=== PATIENT | male | born 1990 | race Caucasian/White ===

== ENCOUNTER 2017-09-29 17:52 | Emergency (ER) | payer BC, OTHER ==
--- NOTE | 2017-09-29 18:57 | EDM.PDOC ---
ED HPI GENERAL MEDICAL PROBLEM - General Chief Complaint: Abdominal Pain Stated Complaint: ABDOMINAL PAIN Time Seen by Provider: 09/29/17 18:35 Source of Information: Reports: Patient History Limitations: Reports: No Limitations - History of Present Illness INITIAL COMMENTS - FREE TEXT/NARRATIVE: Patient is a 27-year-old male who presents to the ED complaining of left lower inguinal pain concerned about a hernia. Patient states this came on yesterday a.m. No precipitating activities. States with showering noticed some some mild swelling to the left inguinal region with worsening pain on palpation. He's been eating and drinking with no issues. No documented fever. No pain with urination. No history of hernias in the past. There has also been no diarrhea or blood in the stool. In addition has a small wound adjacent to his belly button after picking a sore thinking it was a infected hair. Redness is localized with no drainage present. This is a small area measuring approximately 2 cm to 2 cm. Patient denies any pain in his testicles, swelling to his testicles, painful urination, or any additional complaints. Left Lower Abdomen Pain Score (Numeric/FACES): 6 - Related Data Allergies Allergy/AdvReac Type Severity Reaction Status Date / Time Sulfa (Sulfonamide Allergy Cannot Verified 09/29/17 18:09 Antibiotics) Remember Home Meds: Home Meds . [No Known Home Meds] 09/29/17 [History] Past Medical History - Past Health History Medical/Surgical History: Denies Medical/Surgical History Social & Family History - Tobacco Use Smoking Status *Q: Current Every Day Smoker Years of Tobacco use: 5 Packs/Tins Daily: 0.5 - Caffeine Use Caffeine Use: Reports: Tea - Recreational Drug Use Recreational Drug Use: No ED ROS GENERAL - Review of Systems Review Of Systems: ROS reveals no pertinent complaints other than HPI. ED EXAM, GI/ABD - Physical Exam Exam: See Below Exam Limited By: No Limitations General Appearance: Alert, WD/WN, No Apparent Distress Ears: Hearing Grossly Normal Nose: Normal Inspection Throat/Mouth: Normal Voice, No Airway Compromise Head: Atraumatic, Normocephalic Neck: Normal Inspection, Supple, Non-Tender, Full Range of Motion Respiratory/Chest: No Respiratory Distress, Lungs Clear, Normal Breath Sounds, No Accessory Muscle Use Cardiovascular: Normal Peripheral Pulses, Regular Rate, Rhythm GI/Abdominal Exam: Normal Bowel Sounds, Soft, No Organomegaly, No Distention, Tender (To the left inguinal region with no swelling, redness, or open sores. ) (Male) Exam: Normal Inspection, Circumcised. No: No Hernia (Questional inguinal hernia left side. Nothing noted on the right. Pain noted to the left side with checking. No findings concerning for incarcerated bowel. Pain only.), Inguinal Lymphadenopathy, Scrotum Tenderness (L), Scrotum Tenderness (R), Testicular Tenderness (L), Testicular Tenderness (R) Extremities: Normal Inspection Neurological: Alert, Oriented, CN II-XII Intact, Normal Cognition, No Motor/ Sensory Deficits Psychiatric: Normal Affect, Normal Mood Skin Exam: Warm, Dry, Intact, Normal Color, No Rash Course - Vital Signs Last Recorded V/S: Last Vital Signs Temp 97.9 F 09/29/17 18:08 Pulse 70 09/29/17 18:08 Resp 20 09/29/17 18:08 BP 138/98 H 09/29/17 18:08 Pulse Ox 100 09/29/17 18:08 - Re-Assessments/Exams Free Text/Narrative Re-Assessment/Exam: On examination patient may have a left-sided inguinal hernia. No signs of incarcerated bowel. Offered to obtain CT study of the abdomen and pelvis and also labwork to which the patient refused. He will see a general surgeon in the next week or 2. Departure - Departure Time of Disposition: 19:01 Disposition: Home, Self-Care 01 Condition: Good Clinical Impression: Left groin pain, Mild left inguinal hernia - Discharge Information Instructions: Inguinal Hernia, Adult, [id number], Abdominal Pain, Adult, Easy -to-Read Referrals: Marcus Freedman MD [Physician] - Forms: ED Department Discharge, ED Return to Work/School Form Additional Instructions: Refrain from any activities that cause worsening pain. Take tylenol and ibuprofen in alternating fashion for pain. Call office tomorrow to schedule an appt to be evaluated for inguinal hernia. Return to the E.D. if you develop any new or worsening symptoms.
== END 2017-09-29 19:12 | disposition home or self-care (01) ==
LOC: JD.ED 17:52
DX: K40.90 Unilateral inguinal hernia, without obstruction or gangrene, not specified as recurrent (principal); F17.210 Nicotine dependence, cigarettes, uncomplicated; Z88.2 Allergy status to sulfonamides
CPT/HCPCS: 99283; 99284

== ENCOUNTER 2017-10-14 08:21 | Day surgery (SDC) | payer OTHER ==
[~2017-10-14 08:21] MED LIST: Lactated Ringers 1,000 ML IV SCH; Lidocaine 1%/Sod Bicarbonate in NS 8.4% 1 ML Syringe IDERM PRN; Sodium Chloride 0.9% 10 ML Syringe FLUSH PRN
[2017-10-14] MEDS ORDERED: Bupivacaine 0.5%/EPINEPHrine 1:200,000 50 ML MDV ONE (08:35)
[2017-10-14] MEDS ORDERED: Lidocaine 1% with EPINEPHrine 1:100,000 20 ML MDV ONE (08:35)
--- NOTE | 2017-10-14 09:10 | PCM.PREANE ---
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, has caused no issues ) Gastrointestinal: No Symptoms Neurological: No Symptoms Other: Reports: None - Physical Assessment NPO Status Date: 10/13/17 NPO Status Time: 23:30 O2 Sat by Pulse Oximetry: 97 Respiratory Rate: 16 Vital Signs: Last Vital Signs Temp 36.7 C 10/14/17 08:30 Pulse 89 10/14/17 08:30 Resp 16 10/14/17 08:30 BP 155/92 H 10/14/17 08:30 Pulse Ox 97 10/14/17 08:30 Height: 1.8 m Weight: 81.193 kg ASA Class: 2 Mental Status: Alert & Oriented x3 Airway Class: Mallampati = 1 Dentition: Reports: Normal Dentition Thyro-Mental Finger Breadths: 3 Mouth Opening Finger Breadths: 5 ROM/Head Extension: Limited/Partial Lungs: Clear to Auscultation, Normal Respiratory Effort Cardiovascular: Regular Rate, Regular Rhythm - Allergies Allergies/Adverse Reactions: Allergies Allergy/AdvReac Type Severity Reaction Status Date / Time Sulfa (Sulfonamide Allergy Cannot Verified 10/13/17 14:19 Antibiotics) Remember - Blood Blood Available: No - Acknowledgements Anesthesia Type Planned: General Anesthesia Pt an Appropriate Candidate for the Planned Anesthesia: Yes Alternatives and Risks of Anesthesia Discussed w Pt/Guardian: Yes Pt/Guardian Understands and Agrees with Anesthesia Plan: Yes PreAnesthesia Questionnaire - Past Health History Medical/Surgical History: Denies Medical/Surgical History - SUBSTANCE USE Smoking Status *Q: Current Every Day Smoker Tobacco Use Within Last Twelve Months: Cigarettes Recreational Drug Use History: Yes Recreational Drug Type: Reports: Barbituates - HOME MEDS Home Medications: Home Meds . [No Known Home Meds] 09/29/17 [History] - CURRENT (IN HOUSE) MEDS Current Meds: Current Medications Lactated Ringer's (Ringers, Lactated) 1,000 mls @ 125 mls/hr IV ASDIRECTED [place] Stop: 10/14/17 23:00 Last Admin: 10/14/17 08:45 Dose: 125 mls/hr Lidocaine/Sodium Bicarbonate (Buffered Lidocaine 1% In Ns 8.4%) 0.25 ml IDERM ONETIME PRN PRN Reason: Prior to IV Start Stop: 10/14/17 18:00 Last Admin: 10/14/17 08:44 Dose: 0.25 ml Sodium Chloride (Saline Flush) 10 ml FLUSH ASDIRECTED PRN PRN Reason: Keep Vein Open Stop: 10/14/17 18:00 Discontinued Medications Bupivacaine HCl/Epinephrine Bitart (Marcaine 0.5%/Epinephrine 1:200,000) Confirm Administered Dose 50 ml .ROUTE .STK-MED ONE Stop: 10/14/17 08:36 Lidocaine/Epinephrine (Xylocaine 1% With Epinephrine 1:100,000) Confirm Administered Dose 20 ml .ROUTE .STK-MED ONE Stop: 10/14/17 08:36
[2017-10-14] MEDS ORDERED: fentaNYL 100 MCG/2 ML SDV ONE (09:28)
[2017-10-14] MEDS ORDERED: Propofol 200 MG/20 ML SDV ONE (09:28)
[2017-10-14] MEDS ORDERED: Lidocaine 1% 4 ML ONE (09:29)
[2017-10-14] MEDS ORDERED: ceFAZolin 1 GM Vial ONE (09:31)
[2017-10-14] MEDS ORDERED: Midazolam 1 MG/ML 2 ML SDV ONE (09:40)
[2017-10-14] MEDS ORDERED: Ondansetron 4 MG/2 ML SDV ONE (09:53)
[2017-10-14] MEDS ORDERED: Dexamethasone 4 MG/ML SDV ONE (09:53)
[2017-10-14] MEDS ORDERED: HYDROmorphone 1 MG/ML Syringe ONE (09:59)
--- NOTE | 2017-10-14 10:42 | PCM.OPNOTE ---
- General Post-Op/Procedure Note Date of Surgery/Procedure: 10/14/17 Operative Procedure(s): Open left inguinal hernia repair with mesh Findings: Small cord lipoma with attenuation of the floor of the canal consistent with a direct hernia Pre Op Diagnosis: Symptomatic left inguinal hernia Post-Op Diagnosis: Same Anesthesia Technique: General LMA, Local Primary Surgeon: Marcus Freedman Pathology: None EBL in mLs: 2 Complications: None Condition: Good Free Text/Narrative:: After adequate LMA general anesthesia was obtained the patient's left groin was clipper prepped then prepped wit Betadine solution. Sterile field towels were applied. Then sterile drape. Local analgesia was given in the skin and subcutaneous tissues over the inguinal canal. A 15 blade was used to make an incision over the canal through the skin and subcutaneous tissues and Tricia down to the external oblique fascia. This structure was opened in the direction of its fibers. The spermatic cord was then mobilized at the pubic tubercle and controlled with a Flavio drain. I opened up the cremasteric fibers and there was no indirect sac. There was a small cord lipoma which was clamped and amputated and ligated with 3-0 Vicryl. The floor of the canal was significantly attenuated consistent with a direct hernia. I placed a Prolene mesh in the floor of the canal securing it to the shelving edge and the fascia of the internal oblique with a running 2-0 Prolene suture using a hole in the mesh for cord egress. I irrigated out the canal and obtained hemostasis. I closed the external oblique fascia with a running 3-0 Vicryl. Tricia's was closed with a running 3-0 Vicryl. The skin was closed with 4-0 subcuticular Vicryl. Steri- Strips and gauze used for the dressing. There were no complications.
[2017-10-14] MEDS ORDERED: Ketorolac 30 MG/ML SDV ONE (10:46)
--- NOTE | 2017-10-14 11:19 | PCM.POSTAN ---
POST ANESTHESIA ASSESSMENT - MENTAL STATUS Mental Status: Alert - VITAL SIGNS Pulse Rate: 100 SaO2: 97 Resp Rate: 21 Blood Pressure: 135/57 Temperature: 37.0 C - RESPIRATORY Respiratory Status: Respiratory Rate WNL, Airway Patent, O2 Saturation Stable - CARDIOVASCULAR CV Status: Pulse Rate WNL, Blood Pressure Stable - GASTROINTESTINAL GI Status: No Symptoms - PAIN Pain Score: 2 - POST OP HYDRATION Hydration Status: Adequate & Stable
[2017-10-14] MEDS ORDERED: diphenhydrAMINE 50 MG/ML SDV IVPUSH PRN (11:20)
[2017-10-14] MEDS ORDERED: Ondansetron 4 MG/2 ML SDV IVPUSH PRN (11:20)
[2017-10-14] MEDS ORDERED: HYDROmorphone 0.5 MG/0.5 ML Syringe IVPUSH PRN (11:20)
[2017-10-14] MEDS: fentaNYL 100 MCG/2 ML SDV IVPUSH PRN ×4 (11:34→12:25)
--- NOTE | 2017-10-14 13:43 | PCM48HPAN ---
Post Anesthesia Note - EVALUATION WITHIN 48HRS OF ANESTHETIC Vital Signs in Normal Range: Yes Patient Participated in Evaluation: Yes Respiratory Function Stable: Yes Airway Patent: Yes Cardiovascular Function Stable: Yes Hydration Status Stable: Yes Pain Control Satisfactory: Yes Nausea and Vomiting Control Satisfactory: Yes Mental Status Recovered: Yes Pulse Rate: 100 Resp Rate: 16 Temperature: 37.0 C Blood Pressure: 135/57
== END 2017-10-14 14:10 | disposition home or self-care (01) ==
LOC: JD.SDS 08:21
PROVIDERS: ATTEND Surgery
DX: K40.90 Unilateral inguinal hernia, without obstruction or gangrene, not specified as recurrent (principal); Z88.2 Allergy status to sulfonamides; F17.210 Nicotine dependence, cigarettes, uncomplicated
CPT/HCPCS: 49505; C1781; J0690; J1100; J1170; J1885; J2250; J2405; J3010; J7120; 00830; J2704

== ENCOUNTER 2017-11-02 16:31 | Emergency (ER) | payer OTHER ==
--- NOTE | 2017-11-02 16:56 | EDM.PDOC ---
ED HPI GENERAL MEDICAL PROBLEM - General Chief Complaint: Gastrointestinal Problem Stated Complaint: HERNIA SURG. NEEDS TO BE CHECKED OUT Time Seen by Provider: 11/02/17 16:40 Source of Information: Reports: Patient History Limitations: Reports: No Limitations - History of Present Illness INITIAL COMMENTS - FREE TEXT/NARRATIVE: Patient is a 27-year-old male presents ED complaining of left inguinal pain. Patient just recently had surgery to repair a inguinal hernia by Dr. Freedman on October 14. Today lifted his youngest child that weighs approximately 36 pounds and had sudden onset of pain to the lateral aspect of the surgical incision just superior worse with palpation. No protrusion noted. Incision site is intact. No pain to his testicles noted. Pain is localized with no radiation. Treatments GERIATRIC NURSING ASSISTANT: Reports: Other Medication(s) Other Treatments GERIATRIC NURSING ASSISTANT: percocet Abdomen Pain Score (Numeric/FACES): 5 - Related Data Allergies Allergy/AdvReac Type Severity Reaction Status Date / Time Sulfa (Sulfonamide Allergy Cannot Verified 11/02/17 16:40 Antibiotics) Remember Home Meds: Home Meds Acetaminophen/HYDROcodone [[place] 325-5 MG] 1 tab PO Q6H PRN #12 tablet 11/02/17 [Rx] Past Medical History - Past Health History Medical/Surgical History: Denies Medical/Surgical History - Past Surgical History GI Surgical History: Reports: Hernia, Inguinal Social & Family History - Tobacco Use Smoking Status *Q: Current Every Day Smoker Years of Tobacco use: 1 Packs/Tins Daily: 0.5 Used Tobacco, but Quit: No Second Hand Smoke Exposure: No - Caffeine Use Caffeine Use: Reports: None - Recreational Drug Use Recreational Drug Use: No Drug Use in Last 12 Months: Yes Recreational Drug Type: Reports: Barbituates Recreational Drug Use Frequency: Not Used In Over 6 Months ED ROS GENERAL - Review of Systems Review Of Systems: ROS reveals no pertinent complaints other than HPI. ED EXAM, GENERAL - Physical Exam Exam: See Below Exam Limited By: No Limitations General Appearance: Alert, WD/WN, Mild Distress Ears: Hearing Grossly Normal Nose: Normal Inspection Throat/Mouth: Normal Voice, No Airway Compromise Neck: Normal Inspection Respiratory/Chest: No Respiratory Distress, No Accessory Muscle Use Cardiovascular: Normal Peripheral Pulses, Regular Rate, Rhythm GI/Abdominal: Normal Bowel Sounds, Soft, No Organomegaly, No Distention, Other ( Approximately 2 inch surgical incision to the left inguinal region intact with pain noted to the lateral aspect just superior. Pain is pin point on palpation. Firm meshlike structure noted with gentle pressure. No protrusion noted suggesting relapse of hernia. No redness, no draining, no increased warmth noted.) (Male) Exam: No Hernia, Normal Inspection, Circumcised. No: Scrotal Swelling , Scrotum Tenderness (L), Scrotum Tenderness (R), Testicular Tenderness (L), Testicular Tenderness (R), Urethral Discharge Neurological: Alert, Oriented, CN II-XII Intact, Normal Cognition, No Motor/ Sensory Deficits Psychiatric: Normal Affect, Normal Mood Skin Exam: Warm, Dry, Intact, Normal Color, No Rash Course - Vital Signs Last Recorded V/S: Last Vital Signs Temp 98.7 F 11/02/17 16:37 Pulse 107 H 11/02/17 16:37 Resp 18 11/02/17 16:37 BP 150/103 H 11/02/17 16:37 Pulse Ox 97 11/02/17 16:37 - Re-Assessments/Exams Free Text/Narrative Re-Assessment/Exam: On examination. Incision site is intact with no protrusion suggesting hernia present. Pain is pinpoint along the superior lateral edge of the surgical incision site. With palpation it feels that there may be mesh present. Again this is where the pain is worse with palpation. NO pain noted to the testicles and or finding concerning for hernia. Will have patient followup with Dr. Freedman on a outpatient basis. No testing required. Treatment will be tylenol and ibuprofen for mild to moderate pain. Rosburg for severe pain. Patient was instructed to refrain from any activities that cause worsening pain. Departure - Departure Time of Disposition: 16:54 Disposition: Home, Self-Care 01 Condition: Good Clinical Impression: Status post inguinal hernia repair using synthetic patch, Left groin pain Pain in the groin Qualifiers: Laterality: left Qualified Code(s): R10.32 - Left lower quadrant pain - Discharge Information Prescriptions: Acetaminophen/HYDROcodone [[place] 325-5 MG] 1 tab PO Q6H PRN #12 tablet PRN Reason: Pain (Severe 7-10) Instructions: Abdominal Pain, Adult, Pain Medicine Instructions, [id number] Referrals: PCP,None [Primary Care Provider] - Forms: ED Department Discharge, ED Return to Work/School Form Additional Instructions: Follow-up with Dr. Freedman on outpatient basis for reevaluation. Call his office today to schedule an appointment to be seen this week. For mild to moderate pain take Tylenol 650 mg every 6 hours and ibuprofen 600 mg every 6 hours as needed in alternating fashion. For severe pain not controlled with these therapies take Rosburg one tab every 6 hours as needed. Do not take Rosburg and Tylenol together. Refrain from any activities that cause worsening pain. Continue to follow postop directions by Dr. Freedman. Return to the ED if you develop any new or worsening symptoms. Do not drive while taking the Rosburg.
== END 2017-11-02 17:06 | disposition home or self-care (01) ==
LOC: JD.ED 16:31
DX: R10.32 Left lower quadrant pain (principal); F17.210 Nicotine dependence, cigarettes, uncomplicated; Z88.2 Allergy status to sulfonamides; Z98.890 Other specified postprocedural states
CPT/HCPCS: 99283

== ENCOUNTER 2019-07-27 15:28 | Emergency (ER) | payer SELFPAY ==
[2019-07-27] MEDS ORDERED: Ibuprofen 800 MG Tab PO ONE (15:53)
[2019-07-27] MEDS ORDERED: Penicillin V Potassium 500 MG Tab PO ONE ×2 (15:53→16:15)
[2019-07-27] MEDS ORDERED: Hydrocortisone/Neomycin/Polymyxin B Otic Susp 10 ML Bottle EARRT ONE (15:56)
--- NOTE | 2019-07-27 15:59 | EDM.PDOC ---
ED HPI GENERAL MEDICAL PROBLEM - General Chief Complaint: ENT Problem Stated Complaint: DENTAL COMPLAINT Time Seen by Provider: 07/27/19 15:45 Source of Information: Reports: Patient History Limitations: Reports: No Limitations - History of Present Illness INITIAL COMMENTS - FREE TEXT/NARRATIVE: Patient is a 29 year old male who presents to the E.D. complaining of pain to the right upper and lower jaw line. Patient has multiple teeth with severe dental decay. States the two affected teeth have portions of the teeth missing. States the pain has waxed and waned in fashion getting worse over the past few days. Patient has also noted pain to the right ear. He is a resident of [facility] for drug addiction. States last used meth two days ago. Patient has not taken any ibuprofen, Tylenol, and or other OTC therapies since he does not have money. Denies difficulty swallowing, change in voice, fever, drainage from teeth, or any additional complaints. Right Upper Tooth/Teeth Pain Score (Numeric/FACES): 10 - Related Data Allergies Allergy/AdvReac Type Severity Reaction Status Date / Time Sulfa (Sulfonamide Allergy Cannot Verified 07/27/19 15:36 Antibiotics) Remember Home Meds: Home Meds Penicillin V Potassium 500 mg PO Q6HR #40 tab 07/27/19 [Rx] Past Medical History - Past Health History Medical/Surgical History: Denies Medical/Surgical History HEENT History: Reports: None Cardiovascular History: Reports: None Respiratory History: Reports: None Genitourinary History: Reports: None Musculoskeletal History: Reports: None Neurological History: Reports: None Psychiatric History: Reports: None Endocrine/Metabolic History: Reports: None Hematologic History: Reports: None Immunologic History: Reports: None Oncologic (Cancer) History: Reports: None Dermatologic History: Reports: None - Infectious Disease History Infectious Disease History: Reports: None - Past Surgical History GI Surgical History: Reports: Hernia, Inguinal Social & Family History - Tobacco Use Smoking Status *Q: Never Smoker - Caffeine Use Caffeine Use: Reports: Coffee - Recreational Drug Use Recreational Drug Use: No ED ROS ENT - Review of Systems Review Of Systems: Comprehensive ROS is negative, except as noted in HPI. ED EXAM, ENT - Physical Exam Exam: See Below Exam Limited By: No Limitations General Appearance: Alert, WD/WN, No Apparent Distress Eye Exam: Bilateral Eye: Normal Inspection Ears: Normal External Exam, Hearing Grossly Normal, Normal TMs, Canal Swelling ( right). No: Normal Canal, Mastoid Swelling, Mastoid Tenderness, Canal Blood, Canal Discharge, Canal Material, TM Bulging, TM Dullness, TM Erythema, TM Blood , TM Fluid, TM Perforation, TM Vesicles, TM Obscured by Cerumen, Cerumen Impaction, Abnormal Insufflation Nose: Normal Inspection, Normal Mucousa, No Blood Mouth/Throat: Dental Tenderness (Right upper/lower jaw line. Few teeth to the upper and lower palate on affected side in poor dental decay and pain with gentle pressure. no significant gum line swelling. No trismus or uvula deviation. ) Head: Atraumatic, Normocephalic Neck: Normal Inspection, Supple, Non-Tender, Full Range of Motion. No: Lymphadenopathy (L), Lymphadenopathy (R) Respiratory/Chest: No Respiratory Distress, Lungs Clear, Normal Breath Sounds, No Accessory Muscle Use, Chest Non-Tender Cardiovascular: Normal Peripheral Pulses, No Murmur, Tachycardia Neurological: Alert, Oriented, CN II-XII Intact, Normal Cognition, No Motor/ Sensory Deficits Psychiatric: Normal Affect, Normal Mood Course - Vital Signs Last Recorded V/S: Last Vital Signs Temp 96.9 F 07/27/19 15:33 Pulse 68 07/27/19 15:33 Resp 18 07/27/19 15:33 BP 173/118 H 07/27/19 15:35 Pulse Ox 98 07/27/19 15:33 - Orders/Labs/Meds Meds: Medications Discontinued Medications Generic Name Dose Route Start Last Admin Trade Name Freq PRN Reason Stop Dose Admin Ibuprofen 800 mg 07/27/19 15:53 07/27/19 16:00 Motrin PO 07/27/19 15:54 800 mg ONETIME ONE Administration Neomycin/Polymyxin/Hydrocortisone 0.5 ml 07/27/19 15:56 07/27/19 16:02 Cortisporin Otic Susp EARRT 07/27/19 15:57 4 drop ONETIME ONE Administration Penicillin V Potassium 500 mg 07/27/19 15:53 07/27/19 16:00 Veetids PO 07/27/19 15:54 500 mg ONETIME ONE Administration Penicillin V Potassium 500 mg 07/27/19 16:15 07/27/19 16:22 Veetids PO 07/27/19 16:16 500 mg ONETIME ONE Administration Penicillin V Potassium Confirm 07/27/19 16:20 Veetids Administered 07/27/19 16:21 Dose 500 mg .ROUTE .STK-MED ONE - Re-Assessments/Exams Free Text/Narrative Re-Assessment/Exam: Patient has poor dental decay to right upper/lower palate. No gumline swelling. Pain with gentle pressure. In addition has right sided otitis externa. I have opted to treat both with pen vk and antibiotic ear drops. Patient was administered ibuprofen here while in the E.D. and first dose of pen vk. [facility]. He will need to see dentist for definitive treatment. Return precautions were discussed with patient. He had no further questions or concerns. Departure - Departure Time of Disposition: 15:54 Disposition: Home, Self-Care 01 Condition: Good Clinical Impression: Dental infection Otitis externa Qualifiers: Otitis externa type: other infective Chronicity: acute Laterality: right Qualified Code(s): H60.391 - Other infective otitis externa, right ear - Discharge Information Prescriptions: Penicillin V Potassium 500 mg PO Q6HR #40 tab Instructions: Ear Drops, Adult, Otitis Externa, [id number] Referrals: PCP,None [Primary Care Provider] - Forms: ED Department Discharge Additional Instructions: Take the full course of pen vk as prescribed for dental infection. May use ibuprofen 600mg four times a day and tylenol 650mg four times a day in alternating fashion for pain. Use oral gel as needed for pain. may use clove oil three times a day for pain as well. Make a appt with dentist of your choice for definitive treatment. In addition you have otitis externa. this is infection to the external ear canal. You will be treated with cortisporin otic drops, 4 gtts to the right ear three times a day for 10 days. See PCP of your choice for reevaluation if no resolution. Return to the E.D. for any new or worsening symptoms. Sepsis Event Note - Evaluation Sepsis Screening Result: No Definite Risk - Focused Exam Date Exam was Performed: 07/31/19 Time Exam was Performed: 20:03
[2019-07-27] MEDS ORDERED: Penicillin V Potassium 500 MG Tab ONE (16:20)
== END 2019-07-27 16:25 | disposition home or self-care (01) ==
LOC: JD.ED 15:28
DX: K04.7 Periapical abscess without sinus (principal); H60.391 Other infective otitis externa, right ear; Z88.2 Allergy status to sulfonamides
CPT/HCPCS: 99282; A9270; 99283

== ENCOUNTER 2019-09-30 17:56 | Emergency (ER) | payer SELFPAY | END 2019-09-30 19:00 | disposition left against medical advice (07) | LOC: JD.ED 17:56 | DX: Z53.21 Procedure and treatment not carried out due to patient leaving prior to being seen by health care provider (principal) ==

== ENCOUNTER 2019-11-23 03:54 | Emergency (ER) | payer SELFPAY ==
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
--- NOTE | 2019-11-23 06:01 | CR ---
Pelvis and left hip: AP view of the pelvis was obtained as well as AP and frog-leg lateral views left hip. Several small cysts are noted within the right femoral neck which have a benign appearance. Joint spaces within both hips are maintained. Sacroiliac joints appear within normal limits. No fracture, dislocation or other bony abnormality is identified. Impression: 1. Nothing acute is appreciated on AP pelvis or 2 view left hip exam. Diagnostic code #2 This report was dictated in MDT
--- NOTE | 2019-11-23 06:01 | CR ---
Cervical spine: AP, lateral and odontoid views of cervical spine were obtained as well as a swimmer's view. Comparison: No previous cervical spine imaging. Vertebral body heights and disc spaces are maintained. Prevertebral soft tissues are normal. No subluxation or fracture is appreciated. Impression: 1. No abnormality is appreciated on 3 view cervical spine exam. Diagnostic code #1 This report was dictated in MDT
--- NOTE | 2019-11-23 06:01 | CR ---
Thoracic spine: AP and lateral views of the thoracic spine were obtained. Slight loss of vertebral body height of several lower thoracic vertebral bodies are seen which occur in an area of disc space narrowing. This finding is felt to be developmental. Other vertebral body heights are maintained. Other disc spaces are maintained. Minimal scoliosis is noted. Pedicles are intact. No subluxation or fracture is seen. Impression: 1. Mild scoliosis. 2. Developmental findings as described above. 3. Nothing acute is identified. Diagnostic code #2 This report was dictated in MDT
== END 2019-11-23 06:38 | disposition home or self-care (01) ==
LOC: JD.ED 03:54
DX: S29.012A Strain of muscle and tendon of back wall of thorax, initial encounter (principal); S70.02XA Contusion of left hip, initial encounter; Z88.2 Allergy status to sulfonamides; V43.52XA Car driver injured in collision with other type car in traffic accident, initial encounter; Y92.410 Unspecified street and highway as the place of occurrence of the external cause
CPT/HCPCS: 72040; 72040-26; 72070; 72070-26; 73502-26-LT; 73502-LT; 99284-25

== ENCOUNTER 2020-01-22 09:03 | Emergency (ER) | payer SELFPAY ==
[2020-01-22] MEDS ORDERED: Lidocaine 1% 10 ML MDV INJECT ONE (09:22)
[2020-01-22] MEDS ORDERED: Diphtheria,Pertussis(Acell),Tetanus Vaccine 0.5 ML Syringe IM ONE (09:23)
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
--- NOTE | 2020-01-23 09:49 | CT ---
CT facial bones Technique: Multiple axial sections through the facial bones were obtained. Reconstructed coronal and sagittal images were reviewed. Comparison: No previous study. Findings: Soft tissue swelling is seen within the left posterior frontal scalp. Right and left globes are symmetric. Paranasal sinuses are clear. Mastoid sinuses show nothing acute. No acute facial bone abnormality is appreciated. Impression: 1. Soft tissue swelling within the posterior left frontal scalp. 2. No acute facial bone abnormality is seen. Diagnostic code #2 This report was dictated in MDT I agree with preliminary report from [facility], finalized on 01/22/20, 12:06 PM Central Daylight Time
== END 2020-01-22 10:24 ==
LOC: JD.ED 09:03
DX: S01.81XA Laceration without foreign body of other part of head, initial encounter (principal); S13.4XXA Sprain of ligaments of cervical spine, initial encounter; Z23 Encounter for immunization; Z88.2 Allergy status to sulfonamides; Y04.0XXA Assault by unarmed brawl or fight, initial encounter
CPT/HCPCS: 12013; 70486; 90471; 90715; 99283; J2001